=== PATIENT | male | born 1970 | race Caucasian/White ===

== ENCOUNTER 2024-11-25 04:36 | Day surgery (SDC) | payer OTHER ==
[2024-11-18 13:49] VITALS: BMI 32.5
[2024-11-25] MEDS ORDERED: oxyCODONE HCL 5 MG TABLET PO PRN (11:27)
[2024-11-25] MEDS ORDERED: ONDANSETRON 4 MG/2 ML VIAL IVPUSH PRN (11:27)
[2024-11-25] MEDS ORDERED: BUPIVACAINE HCL/PF 0.5% (5MG/ML) 10 ML VIAL ONE ×2 (11:30→13:11)
[2024-11-25] MEDS ORDERED: LACTATED RINGERS SOLUTION 1,000 ML IV SCH (11:30)
[2024-11-25] MEDS ORDERED: ALBUTEROL SO4 HFA INHALER IH ONE (11:31)
[2024-11-25] MEDS ORDERED: LIDOCAINE HCL/PF 2% SDV 5ML VIAL ONE (11:47)
[2024-11-25] MEDS ORDERED: PROPOFOL 20 ML ONE (11:48)
[2024-11-25] MEDS ORDERED: ROCURONIUM BROMIDE 50 MG/5 ML SYRINGE ONE (11:48)
[2024-11-25] MEDS ORDERED: MIDAZOLAM HCL 2 MG/2 ML SINGLE DOSE VIAL ONE (11:49)
[2024-11-25] MEDS ORDERED: SUCCINYLCHOLINE CHLORIDE 200 MG/10 ML SYRINGE ONE (11:49)
[2024-11-25] MEDS: ceFAZolin SODIUM 1 GM VIAL IVPB ONE (12:20)
[2024-11-25] MEDS ORDERED: ONDANSETRON 4 MG/2 ML VIAL ONE (12:29)
[2024-11-25] MEDS ORDERED: DEXAMETHASONE SOD PHOSPHATE 4 MG/1 ML VIAL ONE (12:29)
[2024-11-25] MEDS ORDERED: ceFAZolin SODIUM 1 GM VIAL ONE (12:29)
[2024-11-25] MEDS: BUPIVACAINE HCL/PF 0.5% (5MG/ML) 10 ML VIAL IJ ONE ×3 (12:41→13:57)
[2024-11-25] MEDS ORDERED: SUGAMMADEX SODIUM 200 MG/2 ML VIAL ONE (13:50)
[2024-11-25 16:24] VITALS: RESP 16
[2024-11-25 17:58] VITALS: BP 110/70; PULSE 84; TEMP 97
== END 2024-11-25 17:25 | disposition home or self-care (01) ==
LOC: JASU-SURG 04:36
PROVIDERS: ATTEND Surgery
PROC: 8E0W4CZ Robotic Assisted Procedure of Trunk Region, Percutaneous Endoscopic Approach (ICD-10-PCS; 2024-11-25)
PROC: 0YU54JZ Supplement Right Inguinal Region with Synthetic Substitute, Percutaneous Endoscopic Approach (ICD-10-PCS; principal; 2024-11-25 10:30)
DX: K40.90 Unilateral inguinal hernia, without obstruction or gangrene, not specified as recurrent (principal)
CPT/HCPCS: 49650; S2900; 86850; 86900; 86901; 94760; C1781